=== PATIENT | male | born 1945 | race Caucasian/White ===

== ENCOUNTER 2017-11-18 11:52 | Emergency (ER) | payer MEDICARE, OTHER ==
[~2017-11-18] VITALS: Ht 170.2 cm; Wt 83.5 kg
--- OUTSIDE RECORDS SUMMARY | 2017-11-18 11:54 | XMS REPORT | Clinical Summary ---
Author Author [facility] Organization [facility] Address Unknown Phone Unavailable Care Team Providers Care Veterinary Surgeon Name Role Phone Calixto Haynes DO PCP Allergies No Known Allergies Current Medications Prescription Sig. Disp. Refills Start End Date Status Date atorvastatin (LIPITOR) 80 daily. 07/17/19 Active MG tablet 18 aspirin (ECOTRIN) 81 MG Take 81 mg by mouth Active enteric coated tablet daily. metoprolol tartrate Take 1 tablet (25 mg 90 tablet 4 10/27/19 Active (LOPRESSOR) 25 mg tablet total) by mouth daily for 18 18 30 days. losartan (COZAAR) 100 MG Take 1 tablet (100 mg 90 tablet 4 11/03/19 12/03/19 Active tablet total) by mouth daily for 18 18 30 days. losartan-hydrochlorothiaz daily. 07/17/19 10/03/19 Discontin karis (HYZAAR) 100-25 mg 18 18 ued per tablet losartan (COZAAR) 100 MG Take 1 tablet (100 mg 30 tablet 0 10/04/19 10/03/19 Discontin tablet total) by mouth daily for 18 18 ued 30 days. metoprolol tartrate Take 1 tablet (25 mg 30 tablet 0 10/04/19 Discontin (LOPRESSOR) 25 mg tablet total) by mouth daily for 18 18 ued 30 days. acetaminophen-codeine Take 1 tablet by mouth 50 tablet 0 10/03/19 Discontin (TYLENOL WITH CODEINE #3) every 4 (four) hours as 18 18 ued 300-30 mg per tablet needed for mild pain for up to 14 days. acetaminophen-codeine Take 1 tablet by mouth 50 tablet 0 10/03/19 (TYLENOL WITH CODEINE #3) every 4 (four) hours as 18 300-30 mg per tablet needed for mild pain for up to 14 days. losartan (COZAAR) 100 MG Take 1 tablet (100 mg 30 tablet 0 10/04/19 11/01/19 Discontin tablet total) by mouth daily for 18 18 ued 30 days. metoprolol tartrate Take 1 tablet (25 mg 30 tablet 0 10/04/19 Discontin (LOPRESSOR) 25 mg tablet total) by mouth daily for 18 18 ued 30 days. losartan (COZAAR) 100 MG Take 1 tablet (100 mg 30 tablet 0 11/01/19 11/03/19 Discontin tablet total) by mouth daily for 18 18 ued 30 days. Active Problems Problem Noted Date CAD (coronary artery disease) 10/18/2017 Encounter for screening colonoscopy 10/18/2017 Essential (primary) hypertension 10/18/2017 Fatigue 10/18/2017 Flu vaccine need 10/18/2017 HTN (hypertension) 10/18/2017 Hyperlipidemia 10/18/2017 Need for hepatitis C screening test 10/18/2017 Need for vaccination with 13-polyvalent pneumococcal conjugate vaccine 10/18 Severe protein-calorie malnutrition 09/21/2017 SBO (small bowel obstruction) 09/18/2017 Leukocytosis 09/18/2017 Acute blood loss anemia 09/18/2017 S/P CABG x 3 09/18/2017 Dizziness 09/13/2017 Overview: Added automatically from request for surgery [id number] Chest tightness 09/13/2017 Overview: Added automatically from request for surgery [id number] SOB (shortness of breath) 09/13/2017 Overview: Added automatically from request for surgery [id number] Diabetes mellitus type 2, diet-controlled 10/03/2013 RBBB (right bundle branch block) 12/18/2012 Encounters Date Type Specialty Care Team Description 11/08/2017 Refill Cardiology Stella Quezada RN Med Refill 11/02/2017 Refill Cardiology Stella Quezada RN Med Refill 10/31/2017 Refill Cardiology Stella Quezada RN Med Refill 10/30/2017 Refill Cardiology Bernardino Acosta MD Med Refill 10/29/2017 Refill Cardiology Karlie Johnson MA Med Refill 10/26/2017 Refill Cardiology tSella Quezada RN Med Refill 10/25/2017 Refill Cardiology Bernardino Acosta MD Med Refill 10/18/2017 Office Visit Cardiology Bernardino Acosta MD Essential hypertension (Primary Dx) 10/05/2017 Telephone Cardiology Debi Markham MA Appointment 09/14/2017 [facility] Cardiology Bernardino Acosta MD S/P CABG x 3 (Primary - Encounter Dx); 10/02/2017 SOB (shortness of breath); Chest tightness; Dizziness; Bowel obstruction 09/14/2017 Anesthesia Cardiac Intensive Care Rashi Vania Melisa, Isamar MIJARES 09/14/2017 Procedure Pass Cardiothoracic Surgery 09/14/2017 Surgery Cardiothoracic Surgery Mikayla Connelly MD Cabg, With Endoscopic Vein Harvesting 09/14/2017 Procedure Pass Procedural Cardiology 09/14/2017 Surgery Procedural Cardiology Bernradino Acosta MD Cv selective coronary angiography [11961 (CPT )] 09/13/2017 Office Visit Cardiology Kassandra Harrison MD SOB (shortness of breath) (Primary Dx); Chest tightness; Dizziness after 11/17/2016 Family History Medical History Relation Name Comments Heart disease Father Lung disease Father Diabetes Mother Hypertension Mother Rheum arthritis Mother Cancer Paternal Uncle Cancer Sister Relation Name Status Comments Father Mother Alive Paternal Uncle Sister Alive Social History Tobacco Use Types Packs/Day Years Used Date Never Smoker Smokeless Tobacco: Never Used Alcohol Use Drinks/Week oz/Week Comments Yes 8 Cans of 4.8 moderate beer Sex Assigned at Date Recorded Not on file Last Filed Vital Signs Vital Sign Reading Time Taken Blood Pressure 123/68 10/18/2017 4:41 PM CDT Pulse 74 10/18/2017 4:41 PM CDT Temperature 35.8 C (96.5 F) 10/02/2017 11:16 AM CDT Respiratory Rate 18 10/02/2017 11:16 AM CDT Oxygen Saturation 98% 10/02/2017 11:16 AM CDT Inhaled Oxygen - - Concentration Weight 82.6 kg (182 lb) 10/18/2017 4:41 PM CDT Height 170.2 cm (5' 7") 10/18/2017 4:41 PM CDT Body Mass Index 28.51 10/18/2017 4:41 PM CDT Plan of Treatment Health Maintenance Due Date Last Done Comments FOOT EXAM 1956 OPHTHALMOLOGY EXAM 1955 URINE MICROALBUMIN 1956 COLONOSCOPY 1996 SHINGRIX VACCINE (#1) 1996 ZOSTER VACCINE 2006 INFLUENZA VACCINE 02/13/2018 03/21/2017, 04/30/2015 PNEUMOCOCCAL-13 Completed 09/11/2016 PNEUMOCOCCAL Completed 10/08/2017 POLYSACCHARIDE VACCINE AGE 65 AND OVER Implants Implanted Type Area Relief Worker Device Expiration Model / Identifier Date Serial / Lot Lead Pace Irvin Mycrdl Unipol Tmpry Cardiovasc N/A: N/A [employer] [place] - [id number] / Streamline - [id number] ular CARDIAC SRGRY / Implanted: 09/14/2017 (Quantity not Implants on file) Clip Ligtng Weck Hemoclip Plus W/ Medical N/A: N/A TELEFLEX [id number] / Tape Ti Med - [id number] Clips for MEDICAL / Implanted: 09/14/2017 (Quantity not Internal on file) Use Clip Ligtng Weck Hemoclip Plus W/ Medical N/A: N/A WECK CLOSURE [id number] / Tape Ti Sm Strngpnt - [id number] Clips for SYSTEMS / Implanted: 09/14/2017 (Quantity not Internal on file) Use System Clsr Sut Meditd 6fr Perclose Surgical N/A: N/A CONN VASCULAR 06/14/2019 [id number] / Proglide - [id number] Implants; DEVICES / Implanted: 09/14/2017 (Quantity not Expanders; [id number] on file) Extenders; Surgical Wires Patch Biosurg Selnt Fibrin Absrbl Surgical N/A: N/A INFANTE [id number] / 9.5x4.8cm Tachosil - [id number] Implants; BIOSCIENCE / Implanted: 09/14/2017 (Quantity not Expanders; on file) Extenders; Surgical Wires [place] Perph Vasclr Ptfe 1.2x10cm Vascular N/A: N/A BARD PERIPHERAL [id number] / 1.65mm - [id number] Graft VASCULAR / Implanted: 09/14/2017 (Quantity not [id number] on file) Procedures Procedure Name Priority Date/Time Associated Diagnosis Comments CATH DUAL LUMEN PICC Routine 09/20/2017 Results for this 12:34 PM TRANSMISSION SUPERVISOR procedure are in the results section. US GUIDED VASCULAR Routine 09/20/2017 Results for this ACCESS 12:34 PM TRANSMISSION SUPERVISOR procedure are in the results section. HC CVL PICC INSERT 5 YRS Routine 09/20/2017 Results for this OR > 12:34 PM TRANSMISSION SUPERVISOR procedure are in the results section. ECHOCARDIOGRAM 2D Routine 09/18/2017 Results for this COMPLETE W MMODE SPECTRAL 3:38 PM TRANSMISSION SUPERVISOR procedure are in the COLOR DOPPLER (48026) results section. ANESTHESIA BRITANY Routine 09/14/2017 6:11 PM TRANSMISSION SUPERVISOR Procedure Note - Vladislav Cifuentes MD - 09/14/2017 6:11 PM TRANSMISSION SUPERVISOR Procedure Performed: BRITANY Start Time: End Time: General Procedure Informatio n Diagnostic Indication s for Echo: hemodynami c monitoring Physician Requesting Echo: MIKAYLA CONNELLY Location performed: OR Intubated Bite block placed Heart visualized Probe Insertion: Easy Probe Type: Multiplane Modalities : Color flow mapping, continuous wave Doppler and pulse wave Doppler Echocardi ographic and Doppler Measuremen ts Ventricle s Right Ventricle: Cavity size normal. Hypertroph y not present. Thrombus not present. Global function normal. Left Ventricle: Cavity size normal. Hypertroph y present. Thrombus not present. Global Function normal. Ejection Fraction 55%. Valves Aortic Valve: Annulus normal. Stenosis not present. Regurgitat ion absent. Leaflets normal. Leaflet motions normal. Mitral Valve: Annulus normal. Stenosis not present. Regurgitat ion +1. Leaflets normal. Leaflet motions normal. Tricuspid Valve: Annulus normal. Stenosis not present. Leaflets normal. Aorta Ascending Aorta: Size normal. Dissection not present. Plaque thickness less than 3 mm. Mobile plaque not present. Aortic Arch: Size normal. Dissection not present. Plaque thickness less than 3 mm. Mobile plaque not present. Descending Aorta: Size normal. Dissection not present. Plaque thickness less than 3 mm. Mobile plaque not present. Atria Right Atrium: Size normal. Spontaneou s echo contrast not present. Thrombus not present. Tumor not present. Device not present. Left Atrium: Size normal. Spontaneou s echo contrast not present. Thrombus not present. Tumor not present. Device not present. Left atrial appendage normal. Septa Atrial Septum: Intra-atri al septal morphology normal. Ventricul ar Septum: Intra-vent ricular septum morphology normal. Other Findings Pericardiu m: normal Pleural Effusion: none Pulmonary Arteries: normal Pulmonary Venous Flow: normal Anesthesi a Informatio n Performed with residents Anesthesio logist: ADDY LUCERO Resident/ DRAMATIC ART TEACHER/AA: JAYCOB CONNOR Echocardi ogram Comments: Pre op: Normal LV and RV function. No wall motion abnormalit ies. Trileaflet AV with no As or AI. Mild MR. Trace TR. No pericardia l effusion or aortic dissection . Post op: Unchanged from pre op. EF preserved. No effusion or dissection seen. CENTRAL LINE Routine 09/14/2017 3:18 PM TRANSMISSION SUPERVISOR Procedure Note - Addy Castaneda CRNA - 09/14/2017 3:18 PM TRANSMISSION SUPERVISOR Central line Performed by: ADDY CASTANEDA Authorized by: ADDY LUCERO Patient Location: OR Start Time: 09/14/2017 2:29 PM Staff: Anesthesio logist: ADDY LUCERO Resident/C RNA/AA: ADDY CASTANEDA Performed by: Resident/C RNA/AA Preprocedu re:patient identified , IV checked, site and side verified, risks and benefits discussed, procedure verified, surgical consent complete, patient position confirmed, monitors and equipment checked and pre-op evaluation complete MSBT: antiseptic used during central venous catheter insertion, all elements of maximal sterile barrier technique followed, hand hygiene performed prior to central venous catheter insertion, cap/gown used by other personnel during central venous catheter insertion, solutions labeled and all ports not used during insertion clamped TIme Out Performed: 09/14/2017 2:29 PM Indication s: Indication s: Vascular access and central pressure monitoring Anesthesia : Anesthesia : General Procedure details: Patient position: Trendelenb urg Catheter Type: Double lumen Catheter Size: 9 Fr Catheter Site: internal jugular vein Catheter site laterality : Right Ultrasound guidance used: Yes Ultrasound image saved: No Number of attempts: 1 Successful placement: Yes Guidewire removal: Guidewire removal is confirmed Guidewire removal witnessed by: JAYCOB CONNOR Post-proce dure: Post-proce dure: line sutured, sterile dressing applied per protocol and ports flushed with saline Post-proce dure: Blood cleaned with CHG and sterile caps on all hubs Assessment : Blood return through all ports and free fluid flow Patient tolerance: Patient tolerated the procedure well with no immediate complicati ons PA CATHETER Routine 09/14/2017 3:15 PM TRANSMISSION SUPERVISOR Procedure Note - Addy Castaneda CRNA - 09/14/2017 3:15 PM TRANSMISSION SUPERVISOR PA catheter Performed by: ADDY CASTANEDA Authorized by: ADDY LUCERO Patient Location: OR Start Time: 09/14/2017 2:29 PM End Time: 09/14/2017 2:34 PM Staff: Anesthesio logist: ADDY LUCERO Resident/C RNA/AA: ADDY CASTANEDA Performed by: Resident/C RNA/AA Preprocedu re: patient identified , IV checked, site and side verified, risks and benefits discussed, procedure verified, surgical consent complete, patient position confirmed, monitors and equipment checked and pre-op evaluation complete MSBT: antiseptic used, all elements of maximal sterile barrier technique followed, hand hygiene performed, cap/gown used by other personnel and solutions labeled TIme Out Performed: 09/14/2017 2:29 PM Procedure details: PA Catheter Type: SPINNING BATH PATROLLER and oximetric PA Catheter Size: 8 PA Catheter Side: Right PA Catheter Site: Internal jugular PA Catheter secured at: 50 cm PA Catheter placed: PA Catheter placed through a second separate venous access point PA Catheter placed: PA Catheter placed without difficulty Waveform: PA Catheter wave confirmed Echo guided: Echo guided placement Ports flushed: All ports flushed pre-proced ure Balloon checked: Balloon checked prior to insertion Post-proc edure: No arrhythmia : No arrhythmia s noted Patient tolerance: Patient tolerated the procedure well with no immediate complicati ons AZ AN ELECTIVE Routine 09/14/2017 ENDOTRACHEAL AIRWAY 3:14 PM TRANSMISSION SUPERVISOR Procedure Note - Addy Castandea CRNA - 09/14/2017 3:14 PM TRANSMISSION SUPERVISOR Airway Date/Time: 09/14/2017 2:27 PM Performed by: ADDY CASTANEDA Authorized by: ADDY LUCERO Location: OR Urgency: Elective Anesthesio logist: ADDY LUCERO/C RNA/AA: JAYCOB CONNOR Performed by: resident/C JESSICA/AA Preoxygena devin with 100% O2: Yes Mask Ventilatio n: Easy mask Final Airway Type: Endotrache al airway Final Endotrache al Airway: ETT Cuffed: Yes Technique Used: Direct laryngosco py Devices/Me thods Used in Placement: Intubatin g stylet Insertion Site: Oral Blade Type: Killian Laryngosco pe Blade/Vide olaryngosc ope Blade Size: 2 ETT Size (mm): 8.0 Cuff at minimum occlusion pressure: Yes Measured from: Lips ETT to Lips (cm): 23 Placement Verified by: CO2 detection, direct visualizat ion and equal breath sounds Laryngosco pic view: Grade I - full view of glottis Rapid Sequence Induction (RSI): No Modified RSI: No Number of Attempts at Approach: 1 ARTERIAL LINE Routine 09/14/2017 2:20 PM TRANSMISSION SUPERVISOR Procedure Note - Addy Castaneda CRNA - 09/14/2017 2:20 PM TRANSMISSION SUPERVISOR Arterial line Performed by: ADDY CASTANEDA Authorized by: ADDY CASTANEDA Patient Location: OR Start Time: 09/14/2017 2:17 PM End Time: 09/14/2017 2:19 PM Staff: Anesthesio logist: ADDY LUCERO Resident/C RNA/AA: ADDY CASTANEDA Performed by: Resident/C RNA/AA Pre-proced ure: patient identified , IV checked, site and side verified, risks and benefits discussed, procedure verified, surgical consent complete, patient position confirmed, monitors and equipment checked and pre-op evaluation complete MSBT: antiseptic used, all elements of maximal sterile barrier technique followed, hand hygiene performed, cap/gown used by other personnel and solutions labeled TIme Out Performed: 09/14/2017 2:17 PM Indication s: Indication s: multiple ABGs and hemodynami c monitoring Anesthesia : Anesthesia : Local infiltrati on Procedure Details: Arterial Line placement: Placed pre-induct ion Line placement site: Radial Line placement side: Right Arterial line gauge: 20 G Number of attempts: 1 Ultrasound guidance used: No Post-proce dure: Post-proce dure: Sterile dressing applied Post procedure circulatio n, sensation, movement: Normal Patient tolerance: Patient tolerated the procedure well with no immediate complicati ons CV SELECTIVE CORONARY Routine 09/14/2017 Dizziness Results for this ANGIOGRAPHY 12:16 PM TRANSMISSION SUPERVISOR Chest tightness procedure are in the SOB (shortness of breath) results section. CV STRESS TEST NUCLEAR Routine 09/13/2017 SOB (shortness of breath) Results for this CARDIO 5:19 PM TRANSMISSION SUPERVISOR Chest tightness procedure are in the Dizziness results section. after 11/17/2016 Results * ECG 12 lead (10/18/2017 4:45 PM) Only the most recent of 8 results within the time period is included. Component Value Ref Range Ventricular rate 70 Atrial rate 70 AZ interval 272 QRSD interval 144 QT interval 428 QTC interval 462 P axis 1 29 QRS axis 1 31 T wave axis 71 EKG impression Sinus rhythm with 1st degree AV block-Right bundle branch block-T wave abnormality, consider lateral ischemia-Abnormal ECG-In automated comparison with ECG of 25-SEP-2017 02:24,-Minimal criteria for Inferior infarct are no longer present-T wave inversion more evident in Anterolateral leads- Specimen Performing Laboratory [facility] MUSE [address] [place] [id number] * POC glucose (10/01/2017 7:10 AM) Only the most recent of 85 results within the time period is included. Component Value Ref Range POC glucose 118 (H) 65 - 99 mg/dL Comment: [facility] Notified RN Meter ID: [id number] Stripping And Booking Machine Operator: William Barajas Specimen Performing Laboratory [facility] DEPARTMENT OF PATHOLOGY AND GENOMIC MEDICINE [address] [place] [address] * CBC with platelet and differential (10/01/2017 5:00 AM) Only the most recent of 16 results within the time period is included. Component Value Ref Range WBC 13.89 (H) 4.50 - 11.00 k/uL RBC 3.37 (L) 4.40 - 6.00 m/uL HGB 10.3 (L) 14.0 - 18.0 g/dL HCT 31.9 (L) 41.0 - 51.0 % MCV 94.7 82.0 - 100.0 fL MCH 30.6 27.0 - 34.0 pg MCHC 32.3 31.0 - 37.0 g/dL RDW - SD 50.5 37.0 - 55.0 fL MPV 11.4 8.8 - 13.2 fL Platelet count 340 150 - 400 k/uL Nucleated RBC 0.00 /100 WBC Neutrophils 74.1 (H) 39.0 - 69.0 % Lymphocytes 14.2 (L) 25.0 - 45.0 % Monocytes 8.1 0.0 - 10.0 % Eosinophils 2.4 0.0 - 5.0 % Basophils 0.6 0.0 - 1.0 % Immature granulocytes 0.6Comment: "Immature granulocytes" 0.0 - 1.0 % (promyelocytes, myelocytes, metamyelocytes) Specimen Performing Laboratory Blood [facility] DEPARTMENT OF PATHOLOGY AND [facility] MEDICINE [address] [place] [id number] * Estimated GFR (10/01/2017 4:00 AM) Only the most recent of 20 results within the time period is included. Component Value Ref Range GFR Non Af Amer >90 mL/min/1.73 m2 GFR Af Amer >90 mL/min/1.73 m2 Comment: Chronic kidney disease: <60 mL/min/1.73m2 Kidney failure: <15 mL/min/1.73m2 The estimated GFR is calculated from the IDMS-traceable Modification of Diet in Renal Disease Equation. The accuracy of the calculation is poor when the creatinine is normal. Calculated values >90 mL/min/1.73m2 are not reported. This equation has not been validated in children (<18 years), women, the elderly (>70 years), or ethnic groups other than Caucasians and Americans. Specimen Performing Laboratory Plasma specimen [facility] PATHOLOGY AND [address] [address] * Basic metabolic panel (10/01/2017 4:00 AM) Only the most recent of 20 results within the time period is included. Component Value Ref Range Sodium 138 135 - 148 mEq/L Potassium 4.2 3.5 - 5.0 mEq/L Chloride 98 98 - 112 mEq/L CO2 25 24 - 31 mEq/L Anion gap 15 7 - 15 mEq/L Comment: Starting from October , anion gap calculation no longer incorporates potassium. Please note the change. BUN 18 8 - 23 mg/dL Creatinine 0.8 0.7 - 1.2 mg/dL Glucose 82 65 - 99 mg/dL Calcium 9.8 8.8 - 10.2 mg/dL Specimen Performing Laboratory Plasma specimen [facility] DEPARTMENT OF PATHOLOGY AND GENOMIC MEDICINE [address] [place] [address] * XR Abdomen 1 Vw Portable (09/30/2017 11:00 AM) Only the most recent of 10 results within the time period is included. Specimen Performing Laboratory [facility] [address] [place] [address] Narrative EXAMINATION:XR ABDOMEN 1 VW PORTABLE CLINICAL HISTORY:ileus COMPARISON:09/25/2017. IMPRESSION: 1. Bowel gas pattern is nonobstructive. 2. No evidence of pneumatosis or pneumoperitoneum. 3.No radiopaque urinary calculi. [id number] Procedure Note Interface, Radiology Results Incoming - 09/30/2017 11:08 AM CDT EXAMINATION: XR ABDOMEN 1 VW PORTABLE CLINICAL HISTORY: ileus COMPARISON: 09/25/2017. IMPRESSION: 1. Bowel gas pattern is nonobstructive. 2. No evidence of pneumatosis or pneumoperitoneum. 3.No radiopaque urinary calculi. [id number] * XR Chest 1 Vw Portable (09/29/2017 3:17 PM) Only the most recent of 6 results within the time period is included. Specimen Performing Laboratory [facility] [address] [place] [address] Narrative Examination:XR CHEST 1 VW PORTABLE Clinical history:"SHORTNESS OF BREATH" Comparison:09/20/2017 One radiographic view of the chest was evaluated. Impression: There are no new alveolar opacities within either lung. Opacities within both lung bases have resolved.The transesophageal gastric tube has been removed; the right upper extremity PICC is unchanged in position. No pneumothoraces are identified. The cardiomediastinal silhouette and the remainder of the chest appear essentially unchanged. [id number] Procedure Note Interface, Radiology Results Incoming - 09/29/2017 3:54 PM CDT Examination: XR CHEST 1 VW PORTABLE Clinical history: "SHORTNESS OF BREATH" Comparison: 09/20/2017 One radiographic view of the chest was evaluated. Impression: There are no new alveolar opacities within either lung. Opacities within both lung bases have resolved. The transesophageal gastric tube has been removed; the right upper extremity PICC is unchanged in position. No pneumothoraces are identified. The cardiomediastinal silhouette and the remainder of the chest appear essentially unchanged. [id number] * Phosphorus level (09/28/2017 4:00 AM) Only the most recent of 19 results within the time period is included. Component Value Ref Range Phosphorus 3.7 2.4 - 4.5 mg/dL Specimen Performing Laboratory Plasma specimen [facility] DEPARTMENT OF PATHOLOGY AND [address] [address] * Magnesium level (09/28/2017 4:00 AM) Only the most recent of 19 results within the time period is included. Component Value Ref Range Magnesium 2.0 1.6 - 2.4 mg/dL Specimen Performing Laboratory Plasma specimen [facility] DEPARTMENT OF PATHOLOGY AND [facility] MEDICINE [address] [place] [address] * CBC hemogram (09/25/2017 2:25 AM) Only the most recent of 4 results within the time period is included. Component Value Ref Range WBC 13.87 (H) 4.50 - 11.00 k/uL RBC 2.88 (L) 4.40 - 6.00 m/uL HGB 9.1 (L) 14.0 - 18.0 g/dL HCT 29.4 (L) 41.0 - 51.0 % MCV 102.1 (H)Comment: Results double checked. 82.0 - 100.0 fL MCH 31.6 27.0 - 34.0 pg MCHC 31.0 31.0 - 37.0 g/dL RDW - SD 54.3 37.0 - 55.0 fL MPV 10.8 8.8 - 13.2 fL Platelet count 302 150 - 400 k/uL Nucleated RBC 0.10 /100 WBC Specimen Performing Laboratory Blood [facility] DEPARTMENT OF PATHOLOGY AND [address] [address] * Manual differential (09/23/2017 4:00 AM) Component Value Ref Range Manual differential PERFORMED Neutrophils 77.0 (H) 39.0 - 69.0 % Lymphocytes 9.0 (L) 25.0 - 45.0 % Monocytes 4.0 0.0 - 10.0 % Eosinophils 7.0 (H) 0.0 - 5.0 % Basophils 0.0 0.0 - 1.0 % Metamyelocytes 1 % Myelocytes 2 % Promyelocytes 0 % Platelet slide review Manda adequate Anisocytosis Moderate Polychromasia Moderate Ovalocytes Moderate Divya cells Moderate (A) Specimen Performing Laboratory [facility] DEPARTMENT OF PATHOLOGY AND GENOMIC MEDICINE [address] [place] [address] * Ionized calcium (09/22/2017 4:00 AM) Only the most recent of 9 results within the time period is included. Component Value Ref Range pH 7.58 Ionized calcium 1.08 (L) 1.11 - 1.32 mmol/L Specimen Performing Laboratory Plasma specimen [facility] DEPARTMENT OF PATHOLOGY AND GENOMIC MEDICINE [address] [place] [address] * XR Picc Chest Portable (09/20/2017 2:47 PM) Specimen Performing Laboratory [facility] [address] [place] [address] Narrative EXAM: XR PICC CHEST PORTABLE INDICATION: K56.609 Unspecified intestinal obstructionunspecified as to partial versus complete obstruction, tpn COMPARISON: Chest AP dated 09/20/2017 at 4:24 AM. IMPRESSION: Interval placement right upper extremity PICC with tip at superior cavoatrial junction. Minimal consolidative opacity lateral aspect left midlung increasing in conspicuity, likely atelectasis. Previously noted wire material left upper quadrant gone. Otherwise unchanged. Enteric tube with tip projecting the gastric fundus. Epicardial pacing wires. Sternal sutures. Minimal elevation right hemidiaphragm. Minimal pulmonary venous congestion. Minimal linear opacity right midlung, discoid atelectasis versus thickening minor fissure. Minimal cardiomegaly. Minimal arthrosis right glenohumeral joint. Possible small periarticular osseous body inferior to the right glenohumeral joint. Moderate degenerative changes thoracic spine. [id number] Procedure Note Interface, Radiology Results Incoming - 09/20/2017 2:58 PM TRANSMISSION SUPERVISOR EXAM: XR PICC CHEST PORTABLE INDICATION: K56.609 Unspecified intestinal obstruction unspecified as to partial versus complete obstruction, tpn COMPARISON: Chest AP dated 09/20/2017 at 4:24 AM. IMPRESSION: Interval placement right upper extremity PICC with tip at superior cavoatrial junction. Minimal consolidative opacity lateral aspect left midlung increasing in conspicuity, likely atelectasis. Previously noted wire material left upper quadrant gone. Otherwise unchanged. Enteric tube with tip projecting the gastric fundus. Epicardial pacing wires. Sternal sutures. Minimal elevation right hemidiaphragm. Minimal pulmonary venous congestion. Minimal linear opacity right midlung, discoid atelectasis versus thickening minor fissure. Minimal cardiomegaly. Minimal arthrosis right glenohumeral joint. Possible small periarticular osseous body inferior to the right glenohumeral joint. Moderate degenerative changes thoracic spine. [id number] * PICC INSERTION (09/20/2017 12:34 PM) Agustin Jenkins 09/20/2017 12:46 PM PICC insertion Date/Time: 09/20/2017 12:35 PM Performed by: CUCA TIRADO Authorized by: ALFREDO US Consent: Consent obtained:Verbal Consent given by:Patient Risks discussed: arterial puncture, incorrect placement, nerve damage, bleeding, infection, superficial thrombus and deep vein thrombus Alternatives discussed:Alternative treatment [place] protocol: Procedure explained and questions answered to patient or proxy's satisfaction: yes Relevant documents present and verified: yes Test results available and properly labeled: yes Imaging studies available: yes Required blood products, implants, devices, and special equipment available: yes Site/side marked: yes Immediately prior to procedure, a time out was called: yes Patient identity confirmed:Verbally with patient, arm band and hospital-assigned identification number Pre-procedure details: Hand hygiene: Hand hygiene performed prior to insertion Sterile barrier technique: All elements of maximal sterile technique followed Skin preparation:2% chlorhexidine Skin preparation agent: Skin preparation agent completely dried prior to procedure Anesthesia (see MAR for exact dosages): Anesthesia method:Local infiltration Local anesthetic:Lidocaine 1% w/o epi Route of administration:Subcutaneous PICC Line Placement Details (Will create an LDA): Patient position:Flat Vessel Size (mm): 4.7. Indication:TPN Location:Right basilic Device Type:Non-valved Catheter size:5 Fr PICC Characteristics: Catheter Brand:[employer] POWER PICC External Catheter Length (cm):2 Internal Catheter Length (cm):40 Total Catheter Length (cm):42 Catheter Lot Number:[id number] Catheter Expiration Date:04/14/2019 Procedure Details: Landmarks identified: yes Ultrasound guidance: yes Sterile ultrasound techniques: Sterile gel and sterile probe covers were used Number of attempts:1 Number of PICC kits used during procedure:1 Purpose of procedure:PICC Placement Successful PICC Placement: Yes Patency/Placement:Flushes without difficulty, flushed with 10 mL normal saline, positive blood return, injection cap placed and x-ray placement verified PICC placed utlizing ultrasound-guided Modified Seldinger Technique: Yes Dressing/Securement:Antimicrobial dressing applied and catheter securement device Blood Loss Amount:Less than 20 mL Post-Procedure Details: Post-procedure:Dressing applied Tip placement confirmed by chest x-ray: Yes Tip position adjusted per chest x-ray: Yes PICC pulled back (cm):2 Tip placement confirmed by repeat chest x-ray: Yes Patient tolerance of procedure:Tolerated well, no immediate complications * Lipid panel (09/19/2017 2:14 AM) Only the most recent of 2 results within the time period is included. Component Value Ref Range Cholesterol 89 <200 mg/dL Triglycerides 102 <150 mg/dL HDL cholesterol 30 (L) >40 mg/dL LDL cholesterol 45Comment: Result obtained by direct LDL <100 mg/dL measurement Lipid panel SeeBelow interpretation Comment: Total Cholesterol (mg/dL) <200 Desirable 200-239 Borderline-high >=240 High Triglycerides (mg/dL) <150 Normal 150-199 Borderline-high 200-499 High >=500 Very high HDL Cholesterol (mg/dL) <40 Low (male) <40 Low (female) LDL Cholesterol (mg/dL) <100 Optimal 100-129 Near or above optimal 130-159 Borderline-high 160-189 High >=190 Very high Risk Catergories that modify LDL goals. Risk Catergories LDL goal (mg/dL) CHD and CHD risk equivalent <100 (10-year risk >20%) Multiple (2+) risk factors <130 (10-year risk=<20%) 0-1 risk factors <160 (<10-year risk) Defining levels of lipids in metabolic syndrome Triglycerides >=150 mg/dL HDL Cholesterol Men <40 mg/dL Women <40 mg/dL Non-HDL cholesterol is a second target for therapy in persons with high triglycerides (>=200 mg/dL) Specimen Performing Laboratory Plasma specimen [facility] DEPARTMENT OF PATHOLOGY AND GENOMIC MEDICINE [address] [place] [address] * Echocardiogram complete w contrast and 3D if needed (09/18/2017 3:38 PM) Specimen [facility] [address] [place] [address] Narrative Echocardiography Report [address] [place] [address] Pat.Name:Annel DUQUE.ID:[id number] .Date: 09/18/2017Refer.MD:BERNARDINO ACOSTA MD Exam Time: 2:03:00 PMStudy Type:Routine Echo Height:67inWeight:198lb BSA: 2.02 m2 DOBAge:1945,72Y Sex: MALEBP: 155/79 HR:90 bpm Sonogrphr: ANIKET Reyes / Wing Jean Baptiste Pat. Stat.:Inpatient Study Status:Final Echo Event ID:[id number] Order ID:[id number] Reason for Study:Etiology - Symptoms or conditions potentialy related to suspected cardiac etiology including but not limited to chest pain, shortness of breath, palpitations, TIA, stroke, or peripheral embolic event Procedures:2D Echo, Colorflow Doppler, Intravenous Definity Contrast Race:C SUMMARY: TDS LV EF is normal. No pericardial effusion. Unable to assess RV systolic function. FINDINGS: LV: LV size is normal. LV EF is normal. Difficult to assess regionalwall motion; however it appears grossly normal. EstimatedEF is 60-64%. Septal motion is paradoxical with flattening. RV: RV size is enlarged. Unable to assess RV systolic function. LA: LA volume is difficult to assess. RA: RA volume is difficult to assess. AO: Aortic root diameter is normal. SAIDA: No pericardial effusion. AV: No structural AV abnormalities noted. MV: Mild mitral annular calcification. PV: No structural PV abnormalities noted. TV: No structural TV abnormalities noted. Sommers: LV filling pressure is elevated. Other:Insufficient TR jet to estimate PA systolic pressure. Technicallydifficult study to assess valvular lesions. MEASUREMENTS: 2D Parasternal Long [place] LVOT 1.9 cmLA Ds 3.1 cm LVIDd5.3 cmIndex 2.6 cm/m Ao An2.2 cm LVIDs3.9 cmAo Rtd 2.9 cm Index1.4 cm/m LV%fs 26.9 % LV Lzpk374.2 g(122-174) IVSd 1.1 cmLVM Index 120.4 g/m2 LVPWd1.2 cmRWT 0.4 DOPPLER LVOT Stroke Vol LVOT 1.9 cmLVOT CO 4 l/min LVOT TVI15.7 cmLVOT CI 2 l/m/m2 LVOT Tm249 msecHR 90 bpm LVOT SV 44.6 ml Signed 09/18/2017 05:20 PM Linda Lawton M.D. Procedure Note Interface, Radiology Results In - 09/18/2017 5:20 PM TRANSMISSION SUPERVISOR Echocardiography Report [address] [place] [address] Pat.Name: WING DUQUE Pat.ID: [id number] .Date: 09/18/2017 Refer.MD: BERNARDINO ACOSTA MD Exam Time: 2:03:00 PM Study Type:Routine Echo Height: 67in Weight: 198lb BSA: 2.02 m2 Age: 1 1945,72Y Sex: MALE BP: 155/79 HR: 90 bpm Sonogrphr: ANIKET Reyes / Wing Benito [facility] Pat. Stat.:Inpatient Study Status:Final Echo Event ID:[id number] Order ID: [id number] Reason for Study:Etiology - Symptoms or conditions potentialy related to suspected cardiac etiology including but not limited to chest pain, shortness of breath, palpitations, TIA, stroke, or peripheral embolic event Procedures:2D Echo, Colorflow Doppler, Intravenous Definity Contrast Race: C SUMMARY: TDS LV EF is normal. No pericardial effusion. Unable to assess RV systolic function. FINDINGS: LV: LV size is normal. LV EF is normal. Difficult to assess regional wall motion; however it appears grossly normal. Estimated EF is 60-64%. Septal motion is paradoxical with flattening . RV: RV size is enlarged. Unable to assess RV systolic function. LA: LA volume is difficult to assess. RA: RA volume is difficult to assess. AO: Aortic root diameter is normal. SAIDA: No pericardial effusion. AV: No structural AV abnormalities noted. MV: Mild mitral annular calcification. PV: No structural PV abnormalities noted. TV: No structural TV abnormalities noted. Sommers: LV filling pressure is elevated. Other: Insufficient TR jet to estimate PA systolic pressure. Technically difficult study to assess valvular lesions. MEASUREMENTS: 2D Parasternal Long [place] LVOT 1.9 cm LA Ds 3.1 cm LVIDd 5.3 cm Index 2.6 cm/m Ao An 2.2 cm LVIDs 3.9 cm Ao Rtd 2.9 cm Index 1.4 cm/m LV%fs 26.9 % LV Mass 243.2 g (122-174) IVSd 1.1 cm LVM Index 120.4 g/m2 LVPWd 1.2 cm RWT 0.4 DOPPLER LVOT Stroke Vol LVOT 1.9 cm LVOT CO 4 l/min LVOT TVI 15.7 cm LVOT CI 2 l/m/m2 LVOT Tm 249 msec HR 90 bpm LVOT SV 44.6 ml Signed 09/18/2017 05:20 PM Linda Lawton M.D. * Type and screen (09/18/2017 1:15 AM) Only the most recent of 2 results within the time period is included. Component Value Ref Range ABO grouping O Rh type POS Antibody screen (gel) NEG Specimen Performing Laboratory Blood [facility] DEPARTMENT OF PATHOLOGY AND [facility] MEDICINE [address] [place] [address] * Potassium level (09/17/2017 2:38 PM) Only the most recent of 2 results within the time period is included. Component Value Ref Range Potassium 3.7 3.5 - 5.0 mEq/L Specimen Performing Laboratory Blood [facility] DEPARTMENT [place] [address] * Lactic acid level (09/17/2017 2:38 PM) Component Value Ref Range Lactic acid 1.2 0.5 - 2.2 mmol/L Specimen Performing Laboratory Blood [facility] DEPARTMENT [place] [address] * CT Abdomen Pelvis Wo Contrast (09/17/2017 2:32 PM) Specimen Performing Laboratory [facility] [address] [place] [address] Narrative EXAMINATION:CT ABDOMEN PELVIS WO CONTRAST CLINICAL HISTORY:ABDOMINAL PAINRLQ TECHNIQUE: Multiple axial images of the abdomen and pelvis were obtained without intravenous administration of iodinated contrast. Sagittal and coronal computerized reformatted images were also obtained. The lack of intravenous contrast reduces the sensitivity of detecting solid organ disease.Automatic exposure control or iterative reconstruction techniques used to reduce dose. COMPARISON:None. Impression: 1.Without IV contrast evaluation of solid organs of upper abdomen is limited. Small amount of ascites noted around the liver and spleen. Small left pleural effusion and bilateral lung basilar atelectasis noted. There is a tiny focus of air along the right anterior diaphragm, this should be correlated with history of recent instrumentation. No free air noted otherwise. 2.Dilated small bowel loops throughout, and the very distal 10 cm of the terminal ileum is not dilated. There appears to be transition at this location, with mild stranding of the adjacent mesentery fat. No evidence for appendicitis noted. Scattered retained stool throughout the colon. Findings compatible with distal ileal small bowel obstruction, with no clear etiology identified. Adhesion could be considered. [facility]-[id number] Procedure Note Hm Interface, Radiology Results Incoming - 09/17/2017 3:36 PM TRANSMISSION SUPERVISOR EXAMINATION: CT ABDOMEN PELVIS WO CONTRAST CLINICAL HISTORY: ABDOMINAL PAIN RLQ TECHNIQUE: Multiple axial images of the abdomen and pelvis were obtained without intravenous administration of iodinated contrast. Sagittal and coronal computerized reformatted images were also obtained. The lack of intravenous contrast reduces the sensitivity of detecting solid organ disease.Automatic exposure control or iterative reconstruction techniques used to reduce dose. COMPARISON: None. Impression: 1. Without IV contrast evaluation of solid organs of upper abdomen is limited. Small amount of ascites noted around the liver and spleen. Small left pleural effusion and bilateral lung basilar atelectasis noted. There is a tiny focus of air along the right anterior diaphragm, this should be correlated with history of recent instrumentation. No free air noted otherwise. 2. Dilated small bowel loops throughout, and the very distal 10 cm of the terminal ileum is not dilated. There appears to be transition at this location, with mild stranding of the adjacent mesentery fat. No evidence for appendicitis noted. Scattered retained stool throughout the colon. Findings compatible with distal ileal small bowel obstruction, with no clear etiology identified. Adhesion could be considered. [facility]-[id number] * Lipase level (09/17/2017 8:40 AM) Component Value Ref Range Lipase 17 13 - 60 U/L Specimen Performing Laboratory Plasma specimen [facility] DEPARTMENT OF PATHOLOGY AND GENOMIC MEDICINE [address] [place] [id number] * Amylase level (09/17/2017 8:40 AM) Component Value Ref Range Amylase 21 (L) 28 - 100 U/L Specimen Performing Laboratory Plasma specimen [facility] DEPARTMENT OF PATHOLOGY AND GENOMIC MEDICINE [address] [place] [address] * Hepatic function panel (09/17/2017 8:40 AM) Component Value Ref Range Albumin 3.5 3.5 - 5.0 g/dL Total bilirubin 1.2 0.0 - 1.2 mg/dL Bilirubin direct 0.3 0.0 - 0.3 mg/dL Alkaline phosphatase 51 40 - 129 U/L Protein 6.8 6.3 - 8.3 g/dL Comment: [place] 4.6-7.0 g/dL 1 week 4.4-7.6 g/dL 7 months-1year 5.1-7.3 g/dL 1-2 years 5.6-7.5 g/dL >3 years 6.0-8.0 g/dL 18-150 6.3-8.3 g/dL ALT 12 5 - 50 U/L AST 29 10 - 50 U/L Specimen Performing Laboratory Plasma specimen [facility] DEPARTMENT OF PATHOLOGY AND [address] [address] * O2 saturation, venous (09/15/2017 2:42 AM) Component Value Ref Range Hemoglobin, venous, 10.4 (L) 14.0 - 18.0 g/dL syringe O2 saturation, venous 66 40 - 70 % Specimen Performing Laboratory Blood [facility] DEPARTMENT OF PATHOLOGY [address] [address] * Arterial blood gas (09/14/2017 10:44 PM) Only the most recent of 3 results within the time period is included. Component Value Ref Range pH, arterial 7.35 7.35 - 7.45 pCO2, arterial 43 35 - 45 mmHg pO2, arterial 173 (H) 80 - 90 mmHg Bicarbonate, arterial 22.8 21.0 - 28.0 mmol/L Base excess, arterial -2 -2 - 2 mEq/L O2 saturation, arterial 99 95 - 100 % Specimen Performing Laboratory Blood [facility] [place] [address] * Ionized calcium, arterial (09/14/2017 6:55 PM) Only the most recent of 7 results within the time period is included. Component Value Ref Range Ionized calcium, arterial 1.19 1.11 - 1.32 mmol/L Specimen Performing Laboratory Blood [facility] [place] [address] * Partial thromboplastin time, activated (09/14/2017 6:54 PM) Component Value Ref Range PTT 51.7 (H) 23.0 - 36.0 sec Comment: PTT therapeutic range for unfractionated heparin is 61.0-112.0 seconds which corresponds to Anti-Xa 0.3-0.7 U/ml. Specimen Performing Laboratory Blood [facility] DEPARTMENT PATHOLOGY [address] [address] * Prothrombin time with INR (09/14/2017 6:54 PM) Only the most recent of 2 results within the time period is included. Component Value Ref Range Prothrombin time 17.6 (H) 12.0 - 15.0 sec INR 1.4 Comment: The International Normalized Ratio (INR) is a therapeutic monitoring tool for patients who are stable on oral anticoagulant therapy. An INR of 2.0-3.0 is suggested for deep vein thrombosis/pulmonary embolism. Specimen Performing Laboratory Blood [facility] DEPARTMENT OF PATHOLOGY AND [facility] MEDICINE [address] [place] [address] * Sodium level, syringe (09/14/2017 5:35 PM) Only the most recent of 6 results within the time period is included. Component Value Ref Range Sodium, syringe 131 (L) 135 - 148 mEq/L Specimen Performing Laboratory Blood [facility] [place] [address] * Potassium, syringe (09/14/2017 5:35 PM) Only the most recent of 6 results within the time period is included. Component Value Ref Range Potassium, syringe 4.5 3.5 - 5.0 mEq/L Specimen Performing Laboratory Blood [facility] [place] [address] * Hemoglobin, syringe (09/14/2017 5:35 PM) Only the most recent of 6 results within the time period is included. Component Value Ref Range Hemoglobin, syringe 8.7 (L) 14.0 - 18.0 g/dL Specimen Performing Laboratory Blood [facility] [place] [address] * Glucose level, syringe (09/14/2017 5:35 PM) Only the most recent of 6 results within the time period is included. Component Value Ref Range Glucose, syringe 237 (H) 65 - 99 mg/dL Specimen Performing Laboratory Blood [facility] [place] [address] * Arterial blood gas, corrected (09/14/2017 5:35 PM) Only the most recent of 5 results within the time period is included. Component Value Ref Range pH, arterial 7.38 7.35 - 7.45 pCO2, arterial 36 35 - 45 mmHg pO2, arterial 187 (H) 80 - 90 mmHg Temperature, Celsius 36.6 Degrees C O2 saturation, arterial 99 95 - 100 % pH, arterial corrected 7.39 pCO2, arterial corrected 35 mmHg pO2, arterial corrected 186 mmHg Base excess, arterial -3 (L) -2 - 2 mEq/L Specimen Performing Laboratory Blood [facility] [place] [address] * Hemoglobin & hematocrit (09/14/2017 4:52 PM) Component Value Ref Range HGB 7.9 (L) 14.0 - 18.0 g/dL HCT 23.8 (L) 41.0 - 51.0 % Specimen Performing Laboratory [facility] DEPARTMENT OF PATHOLOGY AND [facility] MEDICINE [address] [place] [address] * Fibrinogen (09/14/2017 4:52 PM) Component Value Ref Range Fibrinogen 220 200 - 450 mg/dL Specimen Performing Laboratory Blood [facility] DEPARTMENT OF PATHOLOGY AND GENOMIC MEDICINE [address] [place] [address] * Platelet count (09/14/2017 4:52 PM) Component Value Ref Range Platelet count 97 (L) 150 - 400 k/uL Specimen Performing Laboratory [facility] DEPARTMENT OF PATHOLOGY AND GENOMIC MEDICINE [address] [place] [address] * Lactic acid, syringe (09/14/2017 4:05 PM) Component Value Ref Range Lactic acid, syringe 1.4 0.5 - 2.2 mmol/L Specimen Performing Laboratory Blood [facility] DEPARTMENT OF PATHOLOGY AND GENOMIC MEDICINE [address] [place] [address] * Prepare platelet pheresis (09/14/2017 1:58 PM) Component Value Ref Range Product name Apheresis PLT, Leukored IRR #2 Unit number [id number] Product code [id number] Dispense status Returned to BB not transfused Blood expiration date Blood type code 6200 Blood type A POSITIVE Product name Apheresis PLT, Leukored IRR #2 Unit number [id number] Product code [id number] Dispense status Returned to BB not transfused Blood expiration date Blood type code 5100 Blood type O POSITIVE Specimen Performing Laboratory [facility] DEPARTMENT OF PATHOLOGY AND [facility] MEDICINE [address] [place] [address] * Prepare RBC, 4 Units (09/14/2017 1:58 PM) Component Value Ref Range Product name Red Blood Cells -1, Leukored Unit number [id number] Product code [id number] Dispense status Returned to BB not transfused Blood expiration date Blood type code 5100 Blood type O POSITIVE Product name Red Blood Cells -1, Leukored Unit number [id number] Product code [id number] Dispense status Returned to BB not transfused Blood expiration date Blood type code 5100 Blood type O POSITIVE Specimen Performing Laboratory [facility] DEPARTMENT OF PATHOLOGY AND [facility] MEDICINE [address] [place] [address] * 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 There is severe ostial LCX and ostial RCA disease, with moderate disease in the proximal LAD. The patient will be admitted and referred for bypass grafting surgery. Moderate sedation was administered with physician supervisionof patient consciousness, respiration, Oxygen saturation and CO2 monitoring, beginning [id number] ( time)for a total period of 33 minutes. I was physically present for the critical portions of all procedures performed during this episode of care * Cv stress test (09/13/2017 5:19 PM) Component Value Ref Range Resting HR 78 Resting BP 137 Peak MET Achieved 7.0 Protocol Name KRISTIN Time in Exercise Phase 00:05:00 Max Systolic BP 194 Max Diastolic BP 81 Max Heart Rate 121 Max Predicted Heart Rate 149 Target HR Formula (220 - Age)*85% Test Indication Chest tightness/Shortness of breath Arrhy During Ex ECG Interp Before EX ECG Interp During Ex Ex Summary Comment Overall HR Response to Exercise Overall BP Response To Exercise Reason for Termination Chest pain/Shortness of breath Stress Test Impression Waveform interpreted in report associated with image study. No interpretation is provided as part of this Stress ECG report.--Electronically Signed By Alfredo Russell MD ([id number]), medical transcription editor Roxann Adam ([id number]) on 09/14/2017 9:10:32 AM Specimen Performing Laboratory [facility] MUSE [address] [place] [address] * Nm myocardial perfusion (09/13/2017 5:19 PM) Specimen Performing Laboratory [facility] [address] [place] [address] Narrative Nuclear Cardiology Laboratory [address] [facility], [address] [place] [address] Ywj: [phone] Myocardial Perfusion Imaging Report Pat.Name:nAnel DUQUE.ID:[id number] .Date: 09/13/2017Refer.MD:KASSANDRA HARRISON MD Exam Time: 3:25:00 PM Study Type:Myocardial Perfusion Imaging Height:67inWeight:204lb BSA: 2.04 m2 DOBAge:1/26/ 1946,72Y Sex: MALE Nuclear Tech:Yuliya Webb, [facility]) Pat. Stat.:OutpatientNuclear Event ID:[id number] Order ID:[id number] Reason for Study:Abnormal EKG*, Chest pain, unspecified*, Shortness of breath Procedures:Single Day Stress / Rest Race: Clinical Symptoms:Exercise SUMMARY: BASELINE ECGSinus bradycardia, 2 AV Block (Mobitz 1), RBBB STRESS TEST RESULTS Maximal Predicted HR149 beats/minute 85% Maximal Predicted HR 126 beats/minute Stress Test Duration5 [id number] seconds Resting Heart Rate78 beats/minute Maximal Heart Vipy756 beats/minute Resting Blood Ciarafve097/66 mmHg Maximal Blood Kgbnjift622/81 mmHg % Maximal Heart Rate Achieved 81% METS Achieved/Maximal RPP 23,474 Symptoms During TestChest pain (03/25) Reason for Stopping TestChest pain Maximal ST-segment shift-0.5 mm Stress-Induced Arrhythmias None Urena Treadmill Score-5.5 Ischemic electrocardiographic changes (ST-segment depression) did not occur at peak exercise stress. _. STRESS TEST INTERPRETATION Abnormal maximal exercise treadmill test compatible with myocardial ischemia, Exercise tolerance is fair.The Urena Treadmill Score is of intermediate prognostic risk.. __. SCINTIGRAPHIC RESULTS Perfusion Defect Size (% LV) 0 % Total 0 % Ischemia 0 % Scar Left Ventricular Perfusion Results There is normal tracer distribution during stress and rest. Gated SPECT Results The post-stress left ventricular ejection fraction is 64 % with normal regional wall motion and left ventricular thickening.Left ventricular end-diastolic volume is 67 ml; end-systolic volume is24 ml. The left ventricle is of normal size at stress and at rest.The right ventricle is of normal size with normal wall motion. Conclusion Normal exercise Tc-99m tetrofosmin myocardial perfusion study.The left ventricular ejection fraction is normal. Study Quality/Artifacts The study quality is good. Comparison to Previous Study None available. Signed 09/13/2017 06:12 PM Alfredo Russell MD Procedure Note Interface, Radiology Results In - 09/13/2017 6:[address] [facility] Nuclear Cardiology Laboratory [address], [address] [place] [address] Myocardial Perfusion Imaging Report Pat.Name: WING DUQUE.ID: [id number] .Date: 09/13/2017 Refer.MD: KASSANDRA HARRISON MD Exam Time: 3:25:00 PM Study Type:Myocardial Perfusion Imaging Height: 67in Weight: 204lb BSA: 2.04 m2 Age: 1 1945,72Y Sex: MALE Nuclear Tech:CLINTON PetersenMT, ARRT(CT) Pat. Stat.:Outpatient Nuclear Event ID:[id number] Order ID: [id number] Reason for Study:Abnormal EKG*, Chest pain, unspecified*, Shortness of breath Procedures:Single Day Stress / Rest Race: Clinical Symptoms:Exercise SUMMARY: BASELINE ECG Sinus bradycardia, 2 AV Block (Mobitz 1), RBBB STRESS TEST RESULTS Maximal Predicted HR 149 beats/minute 85% Maximal Predicted HR 126 beats/minute Stress Test Duration 5 minutes 00 seconds Resting Heart Rate 78 beats/minute Maximal Heart Rate 121 beats/minute Resting Blood Pressure 137/66 mmHg Maximal Blood Pressure 194/81 mmHg % Maximal Heart Rate Achieved 81% METS Achieved/Maximal RPP 23,474 Symptoms During Test Chest pain (9/10) Reason for Stopping Test Chest pain Maximal ST-segment shift -0.5 mm Stress-Induced Arrhythmias None Urena Treadmill Score -5.5 Ischemic electrocardiographic changes (ST-segment depression) did not occur at peak exercise stress. _. STRESS TEST INTERPRETATION Abnormal maximal exercise treadmill test compatible with myocardial ischemia, Exercise tolerance is fair. The Urena Treadmill Score is of intermediate prognostic risk. . __. SCINTIGRAPHIC RESULTS Perfusion Defect Size (% LV) 0 % Total 0 % Ischemia 0 % Scar Left Ventricular Perfusion Results There is normal tracer distribution during stress and rest. Gated SPECT Results The post-stress left ventricular ejection fraction is 64 % with normal regional wall motion and left ventricular thickening. Left ventricular end-diastolic volume is 67 ml; end-systolic volume is 24 ml. The left ventricle is of normal size at stress and at rest. The right ventricle is of normal size with normal wall motion. Conclusion Normal exercise Tc-99m tetrofosmin myocardial perfusion study. The left ventricular ejection fraction is normal. Study Quality/Artifacts The study quality is good. Comparison to Previous Study None available. Signed 09/13/2017 06:12 PM Alfredo Russell MD * Hemoglobin A1c (09/13/2017 2:36 PM) Component Value Ref Range Hemoglobin A1C 6.3 (H) <5.7 % of total Hgb Comment: For someone without known diabetes, a hemoglobin A1c value between 5.7% and 6.4% is consistent with prediabetes and should be confirmed with a follow-up test. For someone with known diabetes, a value <7% indicates that their diabetes is well controlled. A1c targets should be individualized based on duration of diabetes, age, comorbid conditions, and other considerations. This assay result is consistent with an increased risk of diabetes. Currently, no consensus exists regarding use of hemoglobin A1c for diagnosis of diabetes for children. Specimen Performing Laboratory [facility] Narrative FASTING:NO FASTING: NO * Comprehensive metabolic panel (09/13/2017 2:36 PM) Component Value Ref Range Glucose 108 (H) 65 - 99 mg/dL Comment: Fasting reference interval For someone without known diabetes, a glucose value between 100 and 125 mg/dL is consistent with prediabetes and should be confirmed with a follow-up test. BUN, whole blood 24 7 - 25 mg/dL Creatinine 1.25 (H) 0.70 - 1.18 mg/dL Comment: For patients >49 years of age, the reference limit for Creatinine is approximately 13% higher for people identified as -Spanish. EGFR Non-Afr. Spanish 58 (L) > OR=60 mL/min/1.73m2 EGFR 67 > OR=60 mL/min/1.73m2 BUN/creatinine ratio 19 6 - 22 (calc) Sodium 140 135 - 146 mmol/L Potassium 4.4 3.5 - 5.3 mmol/L Chloride 102 98 - 110 mmol/L CO2 27 20 - 31 mmol/L Calcium 10.2 8.6 - 10.3 mg/dL Protein 7.1 6.1 - 8.1 g/dL Albumin, S 4.6 3.6 - 5.1 g/dL Globulin, total 2.5 1.9 - 3.7 g/dL (calc) Albumin/globulin ratio 1.8 1.0 - 2.5 (calc) Total bilirubin 0.6 0.2 - 1.2 mg/dL Alkaline phosphatase 82 40 - 115 U/L AST 15 10 - 35 U/L ALT 15 9 - 46 U/L Specimen Performing Laboratory [facility] Narrative FASTING:NO FASTING: NO after 11/17/2016 Insurance Payer Benefit Subscriber ID Type Phone Address Plan / Group MEDICARE MEDICARE xxxxxxxxxx Medicare [place] PART A AND B COMMERCIAL MISC MISC xxxxxxxxxx Commercial COMMERCIAL
--- OUTSIDE RECORDS SUMMARY | 2017-11-18 11:55 | XMS REPORT | Summary of Care ---
Author Author VANIA GUADARRAMA D.O. Organization Unknown Address Unknown Phone Unavailable Care Team Providers Care Aoc Plans Intelligence Officer Chief Name Role Phone VANIA GUADARRAMA D.O. Unavailable Unavailable YERefugio D.OHeena, AYE Unavailable Unavailable Unavailable Unavailable Functional Status Name Dates Details Functional status health issues are not documented Status: Name Dates Details Cognitive status health issues are not documented Status: Problems Name Dates Details Encounter for screening colonoscopy (V76.51, Z12.11) Status: Active Need for vaccination with 13-polyvalent pneumococcal conjugate vaccine (V03.82 , Z23) Status: Active Flu vaccine need (V04.81, Z23) Status: Active Need for hepatitis C screening test (V73.89, Z11.59) Status: Active Fatigue (780.79, R53.83) Status: Active CAD (coronary artery disease) (414.00, I25.10) Status: Active Essential (primary) hypertension (401.9, I10) Status: Active 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 * Quantity: 30 Refills: 1 * Start : 08-Oct-2017 Active Aspirin Adult Low Strength 81 MG Oral Tablet Chewable CHEW AND SWALLOW 1 TABLET DAILY. * Refills: 0 * Start : 08-Oct-2017 Active Nitroglycerin 0.4 MG Sublingual Tablet Sublingual PLACE 1 TABLET UNDER THE TONGUE EVERY 5 MINUTES FOR UP TO 3 DOSES NEEDED FOR CHEST PAIN.CALL 911 IF PAIN PERSISTS. * Quantity: 30 Refills: 0 AYE MCGUIRE D.O. * Start : 08-Oct-2017 Active Allergies and Adverse Reactions Name Dates Details No Known Drug Allergies (Allergy) Status: Active Past Medical History Name Dates Details History of hiatal hernia (V12.79, Z87.19) Status: Resolved History of hypercholesterolemia (V12.29, Z86.39) Status: Resolved History of hypertension (V12.59, Z86.79) Status: Resolved Procedures Procedure Dates Details History of Bypass Completed Immunization Name Dates Details Prevnar 13 Intramuscular Suspension Lot #: [id number] on: 11-Sep-2016 Fluzone Quadrivalent 0.5 ML Intramuscular Suspension Lot #: [id number] on: 21-Mar-2017 Pneumovax 23 25 MCG/0.5ML Injection Injectable Lot #: [id number] on: 08-Oct-2017 Family History Name Dates Details Family history of diabetes mellitus (V18.0, Z83.3) Status: Active Social History Name Dates Details - Status: Name Dates Details Never smoker Vital Signs Date Test Result Details No Known Vitals to report Results Date Description Value Details Results not documented Plan of Care Name Dates Details Planned Observations Planned Goals not documented Instructions Name Dates Details Instructions not documented Encounters Appointment; AYE MCGUIRE D.O. Encounter Diagnosis: Problem not documented On: 11-Sep-2016 10:00 Appointment; AYE MCGUIRE D.O. Encounter Diagnosis: Problem not documented On: 21-Mar-2017 8:15 Appointment; AYE MCGUIRE D.O. Encounter Diagnosis: Problem not documented On: 08-Oct-2017 10:30
[2017-11-18] MEDS ORDERED: ASPIR 8181 MG PO (12:23)
[2017-11-18] MEDS ORDERED: ATORVASTATIN CA20 MG PO (12:23)
[2017-11-18] MEDS ORDERED: LOSARTAN POTAS100 MG PO (12:23)
[2017-11-18] MEDS ORDERED: METOPROLOL TART25 MG PO (12:23)
[2017-11-18] MEDS ORDERED: TETANUS/DIPHTHERIA TOX ADULT 0.5 ML SYR IM ONE (12:30)
[2017-11-18] MEDS ORDERED: CEFTRIAXONE SOD 1 GM VIAL IM ONE (13:00)
== END 2017-11-18 13:15 | disposition home or self-care (01) ==
LOC: FSED 11:52
DX: M79.644 Pain in right finger(s) (principal); L03.011 Cellulitis of right finger
CPT/HCPCS: 90471; 90714; 99283